=== PATIENT | female | born 1995 | race Caucasian/White ===

== ENCOUNTER 2016-12-15 16:55 | Emergency (ER) | payer OTHER ==
[2016-12-15 17:00] VITALS: O2SAT 97
--- NOTE | 2016-12-15 17:15 | EDPHY ---
H & P Time Seen by Provider: 12/15/16 17:06 HPI/ROS: CHIEF COMPLAINT: Right lower extremity cramping after long distance travel HISTORY OF PRESENT ILLNESS: 21-year-old female with no prior history of coagulopathic disorder arrives from a 3 hour flight from [place] last evening and today noticed right lower extremity cramping sensation in her right thigh as well as a prepatellar area of erythema. Atraumatic. No history of similar. No chest pain. No dyspnea. No abdominal pain. No back pain. REVIEW OF SYSTEMS: A ten point review of systems was performed and is negative with the exception of the items mentioned in the HPI PAST MEDICAL & SURGICAL HISTORY: No pertinent medical or surgical history SOCIAL HISTORY: nonsmoker. PHYSICAL EXAM (Prior to examination, patient consented to physical exam, hands were washed and my usual and customary physical exam procedures followed) 1) GENERAL: Well-developed, well-nourished, alert and oriented. Appears to be in no acute distress. 2) HEAD: Normocephalic, atraumatic 3) HEENT: Pupils equal, round, reactive to light bilaterally. Sclera anicteric. 4) NECK: Full range of motion, no meningeal signs. 5) LUNGS: Clear auscultation bilaterally, no wheezes, no rhonchi, no retractions. 6) HEART: Regular rate and rhythm, no murmur, no heave, no gallop. 7) ABDOMEN: No guarding, no rebound, no focal tenderness,, 8) MUSCULOSKELETAL: Right lower extremity: No asymmetry, no soft tissue swelling. Tender to palpation right lateral mid thigh with no discoloration. Soft compartments. On the right prepatellar space she has a 2 cm by 1 cm area of faint erythema with no induration, nontender. Appears to be possibly secondary to contact dermatitis or insect bite. Does not appear to be consistent with cellulitis. Distal DP PT pulses intact. 9) BACK: No CVA tenderness. 10) SKIN: No rash, no petechiae. DIFFERENTIAL DIAGNOSIS: in no particular include but limited to compartment syndrome, DVT, SVT Smoking Status: Never smoked Constitutional: Initial Vital Signs Temperature (C) 36.9 C 12/15/16 16:56 Heart Rate 84 12/15/16 16:56 Respiratory Rate 16 12/15/16 16:56 Blood Pressure 123/68 H 12/15/16 16:56 O2 Sat (%) 97 12/15/16 16:56 O2 Delivery Mode Room Air Allergies/Adverse Reactions: No Known Allergies Allergy (Unverified 12/15/16 17:00) Home Medications: Medication Instructions Recorded Control Pills 12/15/16 MDM/Departure - MDM Imaging Results: 6:06 p.m.: Ultrasound lower extremity negative for DVT. Images reviewed by myself. ED Course/Re-evaluation: 6:07 pm: Re-evaluation with serial exams. Discussed her negative imaging results. Re-examination reveals soft compartments, neurovascularly intact. Given usual and customary orthopedic discharge precautions instructions. - Depart Disposition: Home, Routine, Self-Care Clinical Impression: Lower extremity pain Qualifiers: Laterality: right Qualified Code(s): M79.604 - Pain in right leg Condition: Good Instructions: Leg Cramps (ED) Additional Instructions: Return to the ER immediately if you experience discoloration, have worsening pain, numbness, tingling, or any other symptoms that concern you. If you received x-rays in the emergency department today, be advised, that ligamentous , tendon, muscular, and other non-bony injury cannot be fully ruled out. Try to keep your affected extremity elevated above the level of your chest, and keep cold packs on the affected area, for the next 48 hours. Referrals: [facility],. [Clinic] - 2-3 days, call for appt.
[2016-12-15 18:17] VITALS: BP 101/68; PULSE 78; RESP 20; TEMP 98.1
== END 2016-12-15 18:20 | disposition home or self-care (01) ==
DX: M79.604 Pain in right leg (principal)

== ENCOUNTER 2017-12-04 11:50 | Emergency (ER) | payer OTHER ==
--- NOTE | 2017-12-04 14:20 | EDPHY ---
H & P Smoking Status: Never smoked Time Seen by Provider: 12/04/17 13:54 HPI/ROS: CHIEF COMPLAINT: Head injury HISTORY OF PRESENT ILLNESS: 22-year-old female presents to the emergency department with closed head injury. The patient states that not o'clock this morning she was getting into a low car and hit the top of her head on the car door. She did not lose consciousness. She complains of pain to the top of her head. She states that she was having difficulty focusing and feels like her eyes are not tracking normally. Denies neck or back pain. Denies chest pain or difficulty breathing. No nausea or vomiting. No history of previous concussions. REVIEW OF SYSTEMS: Constitutional: No fever, no chills. Eyes: No double or blurry vision. ENT: No sore throat. Respiratory: No cough, no shortness of breath. Cardiac: No chest pain. Gastrointestinal: No abdominal pain, vomiting or diarrhea. Genitourinary: No dysuria. Musculoskeletal: No neck or back pain. Skin: No rashes. Neurological: headache. (NayNadia) Past Medical/Surgical History: Negative (AlejandraNadia nolen) Social History: [employer] student from [place] (NayNadia M) Physical Exam: General Appearance: Alert, no distress. No palpable hematoma. No scalp abrasion or signs of trauma. Eyes: Pupils equal and round. Extraocular motions are all intact. ENT: Mouth: Mucous membranes moist. Respiratory: No wheezing, rhonchi, or rales, lungs are clear to auscultation. Cardiovascular: Regular rate and rhythm. Gastrointestinal: Abdomen is soft and nontender, no masses, no rebound or guarding, bowel sounds normal. Neurological: Alert and oriented x 3, cranial nerves II through XII grossly intact Skin: Warm and dry, no rashes. Musculoskeletal: Nontender to palpate along the cervical, thoracic or lumbar spine. Neck is supple. Extremities: Full range of motion and no peripheral edema. Psychiatric: Patient is oriented X 3, there is no agitation. (NayNadia) Constitutional: Initial Vital Signs Temperature (C) 36.7 C 12/04/17 12:09 Heart Rate 82 12/04/17 12:09 Respiratory Rate 18 12/04/17 12:09 Blood Pressure 120/69 12/04/17 12:09 O2 Sat (%) 100 12/04/17 12:09 O2 Delivery Mode Room Air Allergies/Adverse Reactions: No Known Allergies Allergy (Unverified 12/15/16 17:00) Home Medications: Medication Instructions Recorded Control Pills 12/15/16 Medical Decision Making ED Course/Re-evaluation: 22-year-old female presents to the emergency department after head injury. She did not lose consciousness. She has a normal neurologic examination. I did discuss the pros and cons of CT imaging of her brain including radiation exposure and she agrees with not obtaining CT scan. She was given closed-head injury precautions. She requested a note for school. She was instructed to return to the emergency department if she developed worsening headache, vomiting , altered mental status, or if she felt worse in any way. (Nadia Tee) The patient was evaluated and managed by the physician certified physician's assistant. I have reviewed this chart and I agree with the findings and plan of care as documented , as indicated by my signature. I am the secondary supervising physician. ( Clarisa Hill) Differential Diagnosis: Head injury including but not limited to concussion, skull fracture, intraparenchymal contusion, subarachnoid, subdural and epidural hematoma. (Nadia Tee) Departure - Departure Disposition: Home, Routine, Self-Care Clinical Impression: Head injury, Concussion Condition: Good Instructions: Concussion (ED), Head Injury (ED) Additional Instructions: Avoid any activity that might put you at risk for another head injury. Return to the emergency department if he developed worsening headache, vomiting, altered mental status, or if you feel worse in any way. Ibuprofen 400 mg every 8 hr as needed for pain. Referrals: [facility],. [Clinic] - As per Instructions Rupal Santillan MD [[facility] Primary Care Provider] - 2-3 days without fail ( Primary care provider mason helper) Stand Alone Forms: School Excuse
[2017-12-04 14:28] VITALS: BP 118/71
== END 2017-12-04 14:32 | disposition home or self-care (01) ==
DX: S06.0X0A Concussion without loss of consciousness, initial encounter (principal); W22.8XXA Striking against or struck by other objects, initial encounter; Y99.8 Other external cause status; Y93.89 Activity, other specified